=== PATIENT | male | born 1960 | race Caucasian/White ===

== ENCOUNTER 2019-07-13 17:14 | Outpatient (REF) | payer SELFPAY ==
[2019-07-13 21:11] LABS: Anion Gap 7.4 mmol/L (3-11); BUN 18 mg/dL (7-18); CO2 29.6 mmol/L (21.0-32.0); CREATININE 0.94 mg/dL (0.70-1.30); Chloride 105 mmol/L (98-107); Glucose 100 mg/dL (74-106); Potassium 3.4 mmol/L (3.5-5.1); Sodium 142 mmol/L (136-145)
== END 2019-07-13 17:34 ==
LOC: NCHCN 17:14
PROVIDERS: PCP Internal Medicine; Visit Provider Internal Medicine
DX: I10 Essential (primary) hypertension (principal)
CPT/HCPCS: 80048

== ENCOUNTER 2020-07-14 21:38 | Outpatient (REF) | payer SELFPAY ==
[2020-07-17 14:34] LABS: Patient Race White; SARS-CoV-2 RNA Undetected (Undetected); SARS-CoV-2 Specimen Source Nasal
== END 2020-07-14 21:58 ==
LOC: NCHCN 21:38
PROVIDERS: PCP Internal Medicine; Visit Provider Internal Medicine
DX: Z20.828 Contact with and (suspected) exposure to other viral communicable diseases (principal)
CPT/HCPCS: U0003

== ENCOUNTER 2020-07-28 12:18 | Outpatient (REF) | payer SELFPAY ==
[2020-07-28 21:49] LABS: Anion Gap 8.5 mmol/L (3-11); BUN 12 mg/dL (7-18); CO2 28.5 mmol/L (21.0-32.0); CREATININE 0.89 mg/dL (0.70-1.30); Calcium 9.1 mg/dL (8.5-10.1); Chloride 102 mmol/L (98-107); Glucose 97 mg/dL (74-106); Potassium 3.8 mmol/L (3.5-5.1); Sodium 139 mmol/L (136-145)
== END 2020-07-28 12:38 ==
LOC: NCHCN 12:18
PROVIDERS: PCP Internal Medicine; Visit Provider Internal Medicine
DX: I10 Essential (primary) hypertension (principal)
CPT/HCPCS: 80048

== ENCOUNTER 2020-12-11 13:36 | Outpatient (REF) | payer SELFPAY ==
[2020-12-11 19:32] LABS: Abs Immature Grans 0.03 10^3/uL (0.0-0.06); Absolute Basophil Count 0.01 10^3/uL (0.0-0.2); Absolute Eosinophil Count 0.07 10^3/uL (0.0-0.7); Absolute Lymphocyte Count 1.35 10^3/uL (1.2-3.4); Absolute Monocyte Count 0.28 10^3/uL (0.1-0.8); Absolute Neutrophil Count 7.34 10^3/uL (1.2-6.7); Basophils % 0.1; Eosinophils % 0.8; HCT 40.6 % (40.0-50.0); Immature Grans % 0.3; Lymphocytes % 14.9; MCH 32.4 pg (27.0-33.0); MCHC 34.5 % (32.0-36.0); MPV 11.8 fL (8.0-11.0); Monocytes % 3.1; Neutrophils % 80.8; Nucleated RBC 0 %; Platelet Count 224 10^3/uL (130-400); RBC 4.32 10^6/uL (4.36-5.78); RDW 12.1 % (11.8-14.1); RDW-SD 42.3 fL; WBC 9.08 10^3/uL (4.4-10.8)
[2020-12-11 20:02] LABS: ALT 31 U/L (16-63); AST 19 U/L (15-37); Albumin 3.7 g/dL (3.4-5.0); Alkaline Phosphatase 60 U/L (46-116); Anion Gap 8.3 mmol/L (3-11); BUN 16 mg/dL (7-18); CO2 28.7 mmol/L (21.0-32.0); CREATININE 0.9 mg/dL (0.70-1.30); Calcium 8.6 mg/dL (8.5-10.1); Chloride 106 mmol/L (98-107); Glucose 93 mg/dL (74-106); Potassium 3.7 mmol/L (3.5-5.1); Sodium 143 mmol/L (136-145); Total Protein 6.7 g/dL (6.4-8.2)
== END 2020-12-11 13:37 | disposition home or self-care (01) ==
LOC: NCHCN 13:36
PROVIDERS: PCP Internal Medicine; Visit Provider Internal Medicine
DX: I10 Essential (primary) hypertension (principal); L50.9 Urticaria, unspecified
CPT/HCPCS: 80053; 85025

== ENCOUNTER 2022-03-09 16:59 | Outpatient (REF) | payer MEDICAID, SELFPAY ==
[2022-03-09 15:52] LABS: Anion Gap 7.6 mmol/L (3-11); BUN 16 mg/dL (7-18); CO2 31.4 mmol/L (21.0-32.0); CREATININE 0.8 mg/dL (0.70-1.30); Calcium 8.7 mg/dL (8.5-10.1); Calculated LDL 144 mg/dL (<100); Chloride 104 mmol/L (98-107); Cholesterol 197 mg/dL (<200); Glucose 93 mg/dL (74-106); HDL Cholesterol 38 mg/dL (40-60); Potassium 3.7 mmol/L (3.5-5.1); Sodium 143 mmol/L (136-145); Triglyceride 76 mg/dL (<150)
== END 2022-03-09 17:00 | disposition home or self-care (01) ==
LOC: NCHCN 16:59
PROVIDERS: PCP Internal Medicine; Visit Provider Internal Medicine
DX: I10 Essential (primary) hypertension (principal); F41.0 Panic disorder [episodic paroxysmal anxiety]; M54.59 Other low back pain
CPT/HCPCS: 80048; 80061

== ENCOUNTER 2022-09-09 09:38 | Outpatient (REF) | payer MEDICAID, SELFPAY ==
[2022-09-09 15:05] LABS: Anion Gap 7.8 mmol/L (3-11); BUN 23 mg/dL (7-18); CO2 30.2 mmol/L (21.0-32.0); Calcium 9.7 mg/dL (8.5-10.1); Chloride 102 mmol/L (98-107); Estimated GFR 85.63 (mL/min/1.73m2); Glucose 108 mg/dL (74-106); Potassium 3.6 mmol/L (3.5-5.1); Sodium 140 mmol/L (136-145)
[2022-09-10 08:59] LABS: PSA, Screening 1.7 ng/mL (<=4.5)
== END 2022-09-09 09:39 | disposition home or self-care (01) ==
LOC: NCHCN 09:38
PROVIDERS: PCP Internal Medicine; Visit Provider Internal Medicine
DX: I10 Essential (primary) hypertension (principal); F41.0 Panic disorder [episodic paroxysmal anxiety]; R39.15 Urgency of urination; E66.8 Other obesity; Z12.5 Encounter for screening for malignant neoplasm of prostate
CPT/HCPCS: 80048; 84153

== ENCOUNTER 2023-09-14 08:46 | Outpatient (REF) | payer MEDICAID, SELFPAY ==
[2023-09-14 15:36] LABS: ALT 34 U/L (16-63); AST 26 U/L (15-37); Albumin 3.6 g/dL (3.4-5.0); Alkaline Phosphatase 49 U/L (46-116); Anion Gap 8.9 mmol/L (3-11); BUN 9 mg/dL (7-18); Bilirubin, Total 0.6 mg/dL (0.2-1.0); CO2 30.1 mmol/L (21.0-32.0); CREATININE 0.9 mg/dL (0.70-1.30); Calcium 8.8 mg/dL (8.5-10.1); Calculated LDL 141 mg/dL (<100); Chloride 104 mmol/L (98-107); Cholesterol 199 mg/dL (<200); Estimated GFR 96.57 (mL/min/1.73m2); Glucose 110 mg/dL (74-106); HDL Cholesterol 38 mg/dL (40-60); Potassium 3.5 mmol/L (3.5-5.1); Sodium 143 mmol/L (136-145); Total Protein 6.7 g/dL (6.4-8.2); Triglyceride 100 mg/dL (<150)
[2023-09-14 23:01] LABS: PSA, Screening 1.6 ng/mL (<=4.5)
== END 2023-09-14 08:47 | disposition home or self-care (01) ==
LOC: NCHCN 08:46
PROVIDERS: PCP Internal Medicine; Visit Provider Family Medicine
DX: I10 Essential (primary) hypertension (principal); Z12.5 Encounter for screening for malignant neoplasm of prostate
CPT/HCPCS: 80053; 80061; 84153

== ENCOUNTER 2024-03-09 15:05 | Outpatient (REF) | payer OTHER, SELFPAY ==
[2024-03-09 16:23] LABS: Calculated LDL 144 mg/dL (<100); Cholesterol 210 mg/dL (<200); HDL Cholesterol 35 mg/dL (40-60); Triglyceride 156 mg/dL (<150)
== END 2024-03-09 15:06 | disposition home or self-care (01) ==
LOC: NCHCN 15:05
PROVIDERS: PCP Internal Medicine; Visit Provider Family Medicine
DX: E78.5 Hyperlipidemia, unspecified (principal)
CPT/HCPCS: 80061

== ENCOUNTER 2024-10-30 21:38 | Outpatient (REF) | payer OTHER, SELFPAY ==
[2024-10-30 22:39] LABS: Anion Gap 7.2 mmol/L (3-11); BUN 14 mg/dL (7-18); CO2 31.8 mmol/L (21.0-32.0); Calcium 9.7 mg/dL (8.5-10.1); Calculated LDL 151 mg/dL (<100); Chloride 104 mmol/L (98-107); Cholesterol 229 mg/dL (<200); Estimated GFR 84.57 (mL/min/1.73m2); Glucose 83 mg/dL (74-106); HDL Cholesterol 38 mg/dL (>or=40); Hemoglobin A1C 5.4 % (<5.7); Potassium 3.6 mmol/L (3.5-5.1); Sodium 143 mmol/L (136-145); Triglyceride 202 mg/dL (<150)
[2024-10-31 21:31] LABS: HIV-1/2 Ag & Ab Screen Negative (Negative)
[2024-10-31 21:42] LABS: PSA, Screening 1.9 ng/mL (<=4.5)
[2024-10-31 22:19] LABS: Hepatitis C Ab w Rflx HCV PCR Negative (Negative)
== END 2024-10-30 21:39 | disposition home or self-care (01) ==
LOC: NCHCN 21:38
PROVIDERS: PCP Internal Medicine; Visit Provider Family Medicine
DX: R73.9 Hyperglycemia, unspecified (principal); E78.5 Hyperlipidemia, unspecified; Z11.59 Encounter for screening for other viral diseases; Z12.5 Encounter for screening for malignant neoplasm of prostate; Z11.4 Encounter for screening for human immunodeficiency virus [HIV]; I10 Essential (primary) hypertension
CPT/HCPCS: 80048; 80061; 84153; 86803; 87389; 83036

== ENCOUNTER 2025-04-08 06:58 | Day surgery (SDC) | payer OTHER, SELFPAY ==
--- NOTE | 2025-04-07 07:58 | W.PM.DSUDISC ---
Date of service: 04/08/25 Discharge Plan Disposition Patient Disposition: Home Condition: Good Discharge Details Reason For Visit: screening colonoscopy Attending Provider: Dimitry Merchant Primary Care Provider: Gisselle Dahl Home Meds and New Rx's Prescriptions: Continued rosuvastatin 5 mg tablet 5 mg PO DAILY phenelzine [Nardil] 15 MG tablet 15 mg PO DAILY Patient Comments: pt states it is phenelzine sulfate triamterene-hydrochlorothiazid 1 EACH capsule 1 tab-cap PO DAILY lorazepam [Ativan] 1 MG tablet 1 mg PO PRN metoprolol succinate 25 mg tablet extended release 24 hr 25 mg PO DAILY phenelzine 15 mg tablet 15 mg PO DAILY sildenafil 50 mg tablet 50 mg PO DAILY PRN Rx Instructions: administer 30 minutes to 4 hours before activity Discontinued bisacodyl [Dulcolax (bisacodyl)] 5 mg tablet,delayed release (DR/EC) 5 mg PO ONCE Qty: 4 0RF Rx Instructions: Take per colonoscopy instructions provided by ordering providers office polyethylene glycol 3350 17 gram/dose powder 17 g PO ONCE Qty: 238 0RF Rx Instructions: Take per colonoscopy instructions provided by ordering providers office Discharge Instructions Instructions: Diverticulosis Additional Instructions: Robby, it was very nice meeting you today, and I hope you feel well after the procedure. Everything went very smoothly. I saw no signs of any tumors or polyps. Incidentally, you do have some diverticulosis. Diverticula are small weak spots in the muscular layer of the colon wall. This causes the inside lining, or mucosa, to pooch or pocket outwards. These pockets can get infected or inflamed. That is known as diverticulitis. I find diverticula in most patients that I perform colonoscopies on. Most patients have no idea that they have them. Generally I recommend a diet that is rich in fiber, plenty of water through the course of the day, and avoiding any constipation symptoms. I will attach a little bit of information here regarding typical approaches to diverticulosis. If you need anything, or have any questions, please do not hesitate to ask, otherwise, I recommend another colonoscopy in 10 years. 1. If tolerated, consume a soft, low fiber diet for 1-2 days. 2[address] Do not drive, drink alcohol, operate machinery, make critical decisions, or do activities that require coordination or balance for 24 hours. 3. Because air was put into your colon during the procedure, expelling air from your rectum (passing gas or farting) is normal. 4. You may not have a bowel movement for 1-3 days because of the colonoscopy prep. This is normal. 5. Go directly to the emergency room if you notice any of the following: Develop chills (warm to touch), or if you have a thermometer and your temperature is above 101 Difficulty breathing or difficultly swallowing Persistent vomiting Severe abdominal pain, other than gas cramps Severe chest pain Black, tarry stools Any bleeding ? exceeding one tablespoon 6. Call your physician if the site where your intravenous was started becomes red, swollen, painful, and warm to touch. 7. Your physician has reviewed your pre-procedure medications. Please continue to take those medications as previously ordered. You will be given specific information/education regarding any changes to your medications before leaving. Activity:: Activity as Tolerated Diet:: As Tolerated Discharge Orders Discharge Orders: Discharge Order (Routine); Ordered 04/07/25 Ordered By: Dimitry Merchant DS: Diagnosis Discharge Diagnosis (1) Encounter for screening colonoscopy: Status: Acute Asessment and Plan: Diverticulosis; otherwise negative screening colonoscopy, follow-up 10 years
--- NOTE | 2025-04-07 07:59 | W.COLOREPORT ---
Date of service: 04/08/25 Time of Service: 08:44 Colonoscopy Report Date of procedure: 04/08/25 Pre-op diagnosis general: screening colonoscopy Post-op diagnosis procedure note: other (Diverticulosis) Procedure: colonoscopy Surgeon: Dimitry Merchant Anesthesia Type: General:No Airway Estimated blood loss (mL): 0 Pathology: none sent Complications: None Disposition: same day Indications: Robby is a 65 year old man who needs a screening colonoscopy Prep: Miralax/Dulcolax Procedure Start Time: 08:20 Procedure End Time: 08:35 Retraction Time: 10 Findings: Sigmoid diverticulosis Procedure Description: After the induction of monitored anesthetic care, and with the patient in left lateral decubitus position, I began by performing an external anorectal exam.? Perineum and skin were normal, as was the anal verge.?? Next, I performed a digital rectal exam.? There is a small hard area in the posterior midline next, I advanced a colonoscope into the rectal vault.? I performed retroflexion.? This appeared normal.? Using insufflation, I then advanced the colonoscope beyond the rectal folds and into the sigmoid colon before advancing towards the cecum.? There is sigmoid diverticulosis.? The scope was noted to be in the cecum by identification of the ileocecal valve and appendiceal orifice.? I then began withdrawing the colonoscope using repeated irrigation as necessary for full evaluation of the colonic mucosa. ?Once the scope was withdrawn to the level of the rectum, great care was taken to examine portions of the rectal folds.? I saw no signs of any tumors or polyps. Next, in order to further evaluate the posterior midline, I performed fiberoptic lighted anoscopy. There was a punctate amount of what appeared to be hard stool retained in an anal crypt. This was irrigated clean. Digital rectal exam was reperformed, and felt normal. Robby was then brought back to the day surgery unit for recovery [place] Bowel Prep [place] Bowel Prep Right Colon: 3 Left Colon: 3 Transverse Colon: 3 Total Score: 9
--- NOTE | 2025-04-07 15:00 | W.ANESPRE ---
General Info Date of Service Date Performed: 04/08/25 Height: 5 ft 7 in Weight: 102.512 kg Body Mass Index (BMI): 35.4 Surgical Procedure: Operation Date: 04/08/25 08:20 Proposed Procedure Side Surgeon carolyn Merchant MD Meds Allergies and Home Medications Allergies Allergy/AdvReac Type Severity Reaction Status Date / Time No Known Allergies Allergy Unverified 04/08/25 07:23 Home Medication ?Medication ?Instructions ?Recorded Ativan 1 mg tablet (lorazepam) 1 mg PO PRN 02/12/13 Nardil 15 mg tablet (phenelzine) 15 mg PO DAILY 02/12/13 triamterene 37.5 1 tab-cap PO DAILY 02/12/13 mg-hydrochlorothiazide 25 mg capsule metoprolol succinate 25 mg 25 mg PO DAILY 01/08/25 tablet,extended release 24 hr phenelzine 15 mg tablet 15 mg PO DAILY 01/08/25 sildenafil 50 mg tablet 50 mg PO DAILY PRN 01/08/25 rosuvastatin 5 mg tablet 5 mg PO DAILY 03/13/25 Current Visit Medications: Current Medications Generic Name Dose Route Start Last Admin Trade Name Freq PRN Reason Stop Dose Admin Ringer's Solution 1,000 mls @ 80 mls/hr 04/08/25 06:00 IV 04/08/25 23:59 INFUSION KIANNA IV Miscellaneous Supplies 1 each 04/08/25 06:00 Iv Access IV 04/08/25 23:59 DIRECTED KIANNA Ondansetron HCl 4 mg 04/07/25 08:01 Ondansetron 4 Mg/2 Ml Vial IVP 05/07/25 08:00 Q4H PRN PRN Nausea / Vomiting Sodium Chloride 0 ml 04/08/25 06:00 Normal Saline Flush 10 Ml Syr IV 04/08/25 23:59 PRN PRN Sodium Chloride 0 ml 04/08/25 06:00 Normal Saline 10 Ml Vial IJ 04/08/25 23:59 DIRECTED PRN Sterile Water 0 ml 04/08/25 06:00 Water,Injection,Sterile 10 Ml Vial IJ 04/08/25 23:59 DIRECTED PRN PFSH Active Problems Active Problems: Problem Status Onset Code Encounter for screening colonoscopy Acute Z12.11 Essential hypertension Acute I10 Medical History Medical History (Updated 04/07/25 @ 07:59 by Dimitry Merchant MD) Erectile dysfunction Hyperlipidemia Obesity Insomnia (~08/2024) Bilateral tinnitus Tobacco Smoking/Tobacco Use Status: Never Alcohol Alcohol Intake: current Alcohol intake frequency: a few times a week Alcohol type: hard liquor Substance Use Substance use: Never Vital Signs and Lab Results Vital Signs Most Recent Vital Signs in EMR: Temp Pulse Resp BP Pulse Ox 36.5 C 73 16 147/94 H 99 04/08/25 07:29 04/08/25 07:29 04/08/25 07:29 04/08/25 07:29 04/08/25 07:29 Anesthesia Assessment and Plan Anesthesia History Personal History: No History of General Anesthesia Family History: No Family History of Anesthesia Complications Exercise Tolerance Exercise Tolerance: Metabolic Equivalents>4 Cardiac & Pulmonary Exam Cardiac Exam: Normal S1/S2 Heart Sounds Pulmonary Exam: Clear Bilateral Breath Sounds Implantable Cardiac Device Does patient have a Pacemaker or an ICD?: No Airway Exam Known Difficult Airway: No Mallampati Class: 3 Mouth Opening: Normal (> 3cm) Thyromental Distance: Greater than 3 cm Facial Hair: Full [place] Neck Range of Motion: Full ROM Neck Circumference: Normal Teeth Condition: Normal Dentition ASA Classification ASA Score: ASA 2 Emergency Case?: No NPO Status NPO Status: NPO Clears >2 hours, Solids >8 hours Anesthesia Plan Resuscitation Status: Full Code Anesthesia Technique: General Anesthesia Airway Planned: Natural Airway Monitors Used: Standard Monitors Preoperative Comments:: 65 yo male for colo. Sig PMHx: HTN (120/70 at home), occ EtOH.
[2025-04-08 07:29] VITALS: BP 147/94; PULSE 73; RESP 16; TEMP 36.5; O2SAT 99
[2025-04-08 07:44] VITALS: BMI 35.4
[2025-04-08] MEDS: Lactated Ringers 1,000 ML 80 ML IV (07:48)
[2025-04-08 08:41] VITALS: BP 113/76; PULSE 64; RESP 14; TEMP 36.4; O2SAT 96
--- NOTE | 2025-04-08 08:46 | W.ANESPOSTOP ---
Postoperative Evaluation Date, Time and Location Date Performed: 04/08/25 Time Performed: 08:46 Patient Location: Day Surgery Unit Vital Signs Most Recent Imported Vital Signs: Most Recent Vital Signs Temp Pulse Resp BP Pulse Ox 36.4 C L 64 14 113/76 96 04/08/25 08:41 04/08/25 08:41 04/08/25 08:41 04/08/25 08:41 04/08/25 08:41 Pain Score Most Recent Pain Score: Most Recent Pain Score Pain Level 0 04/08/25 08:41 Assessment Mental Status: Awake (Alert & Oriented to Patient Baseline) Airway and Respiratory Function: Patent airway with normal (patient baseline) respiratory exam Cardiovascular Function: Hemodynamically Stable Hydration Status: Adequately Hydrated Nausea & Vomiting: No Nausea or Vomiting Pain: Pt. Denies Any Pain Peripheral Nerve Block: Patient did not receive a nerve block
[2025-04-08 09:04] VITALS: BP 132/83; PULSE 58; RESP 18; TEMP 36.3; O2SAT 96
== END 2025-04-08 09:17 | disposition home or self-care (01) ==
LOC: SUR 06:59
PROVIDERS: PCP Advanced Practice Midwife; Visit Provider Surgery
PROC: 0DJD8ZZ Inspection of Lower Intestinal Tract, Via Natural or Artificial Opening Endoscopic (ICD-10-PCS; CPT 45378; principal; 2025-04-08 08:15)
DX: Z12.11 Encounter for screening for malignant neoplasm of colon (principal); I10 Essential (primary) hypertension; K57.30 Diverticulosis of large intestine without perforation or abscess without bleeding
CPT/HCPCS: 45378; 46600; J2704

== ENCOUNTER 2025-05-02 15:04 | Outpatient (REF) | payer OTHER, SELFPAY ==
[2025-05-02 17:38] LABS: Calculated LDL 84 mg/dL (<100); Cholesterol 136 mg/dL (<200); HDL Cholesterol 38 mg/dL (>or=40); Triglyceride 72 mg/dL (<150)
== END 2025-05-02 15:05 | disposition home or self-care (01) ==
LOC: NCHCN 15:04
PROVIDERS: Visit Provider Family Medicine
DX: E78.5 Hyperlipidemia, unspecified (principal)
CPT/HCPCS: 80061

== ENCOUNTER → 2025-07-29 00:43 | Outpatient (CLI) | payer OTHER, SELFPAY ==
--- NOTE | 2025-07-29 | DI.RAD_ITS ---
Exam(s) XR SHOULDER RT COMPLETE 2+V EXAM: XR SHOULDER RT COMPLETE 2+V CLINICAL HISTORY: RT SHOULDER PAIN, M25.511. TECHNIQUE: 2D digital imaging was performed. Four views. COMPARISON: No exams were available for comparison FINDINGS: BONES: No acute fracture is present. No bony destructive lesion is seen. JOINTS: No dislocation present. There is minimal spurring at the AC joint. Glenohumeral joint space is maintained. SOFT TISSUE: Normal. IMPRESSION: Mild degenerative changes DATA REPOSITORY: RADIATION DOSE DELIVERED:
== END ==
LOC: DI 00:43
PROVIDERS: PCP Family Medicine; Visit Provider Family Medicine
DX: M25.511 Pain in right shoulder (principal)
CPT/HCPCS: 73030